=== PATIENT | male | born 1940 | race Two or more races ===

== ENCOUNTER → 2021-10-01 | Outpatient (CLI) | payer OTHER ==
[2021-10-01 12:22] LABS: Basophils # (auto) 0 10 ^3/uL (0-0.2); Basophils % (auto) 0.6 % (0.0-2.0); Eosinophils # (auto) 0.1 10 ^3/uL (0-0.8); Eosinophils % (auto) 2.4 % (0.0-7.0); Hematocrit 36.8 % (41.0-53.0); Hemoglobin 12.5 g/dL (13.5-17.5); Lymphocytes # (auto) 1.8 10 ^3/uL (0.4-5.4); Lymphocytes % (auto) 40.2 % (10.0-50.0); Mean Corpuscular Hemoglobin 30.5 pg (28.0-32.0); Mean Corpuscular Hgb Conc. 33.9 g/dL (32.0-36.0); Monocytes # (auto) 0.4 10 ^3/uL (0-1.3); Monocytes % (auto) 9.2 % (0.0-12.0); Neutrophils # (auto) 2.2 10 ^3/uL (1.6-8.6); Neutrophils % (auto) 47.6 % (37.0-80.0); Nucleated Red Blood Cells % 0.1 %; Red Blood Cells 4.09 10^6/uL (4.5-5.90); Red Cell Distribution Width 13.9 % (11.8-14.3); White Blood Cell 4.6 10^3/uL (4.4-10.8)
[2021-10-01 12:33] LABS: INR 1.1 (0.9-1.15)
[2021-10-01 12:37] LABS: Urine Bacteria NONE SEEN /hpf (None Seen); Urine Blood Negative /uL (Negative); Urine WBC 3 /hpf (0 - 3)
[2021-10-01 13:13] LABS: Albumin 3.7 g/dL (3.4-5.0); Calcium 8.8 mg/dL (8.5-10.1); Magnesium 2.2 mg/dL (1.6-2.6); Potassium 4.2 mmol/L (3.5-5.1); Uric Acid 4.1 mg/dL (3.5-7.2)
[2021-10-01 13:18] LABS: Bilirubin, Total 0.5 mg/dL (0.2-1.0); Phosphorus 2.8 mg/dL (2.5-4.90); Total Protein 6.6 g/dL (6.4-8.2)
[2021-10-01 13:21] LABS: Free T4 (Free Thyroxine) 0.95 ng/dL (0.89-1.76)
[2021-10-01 13:22] LABS: Free T3 2.98 pg/mL (2.3-4.2); T3 Total 0.92 ng/mL (0.60-1.81)
[2021-10-01 14:08] LABS: % Iron Saturation 38.2 % (20-55)
== END | disposition home or self-care (01) ==
LOC: LAB 11:55
PROVIDERS: ATTEND Family Medicine
DX: E55.9 Vitamin D deficiency, unspecified (principal); R53.83 Other fatigue; E78.41 Elevated Lipoprotein(a); R94.6 Abnormal results of thyroid function studies; R79.9 Abnormal finding of blood chemistry, unspecified; D69.1 Qualitative platelet defects
CPT/HCPCS: 36415; 80053; 80061; 81001; 82306; 82607; 83036; 83540; 83550; 83735; 84100; 84403; 84439; 84443; 84480; 84481; 84550; 85025; 85610; 87086

== ENCOUNTER 2022-11-27 16:22 | Emergency (ER) | payer OTHER ==
[~2022-11-27] VITALS: Ht 185.4 cm; Wt 90.9 kg
[~2022-11-27 16:22] MED LIST: APIX5TAB PO; LISI-716 PO; METO25TA5 PO; TAMS0.4C36 PO
[2022-11-27] MEDS ORDERED: IOHEXOL 350 MG/ML 100ML IJ ONE (16:39)
[2022-11-27] MEDS ORDERED: TRANEXAMIC ACID 1,000 MG in SODIUM CHL 0.9% 100 ML IV ONE (16:45)
[2022-11-27] MEDS ORDERED: ETOMIDATE (2MG/ML) 20ML VIAL IV ONE (17:00)
[2022-11-27] MEDS ORDERED: SUCCINYLCHOLINE CHLORIDE 20 MG/ML 10ML VIAL IV ONE (17:00)
[2022-11-27 17:02] LABS: Basophils # (auto) 0 10 ^3/uL (0-0.2); Basophils % (auto) 0.4 % (0.0-2.0); Eosinophils # (auto) 0 10 ^3/uL (0-0.8); Eosinophils % (auto) 0.1 % (0.0-7.0); Hematocrit 33.5 % (41.0-53.0); Hemoglobin 11.6 g/dL (13.5-17.5); Lymphocytes # (auto) 1.4 10 ^3/uL (0.4-5.4); Lymphocytes % (auto) 13.5 % (10.0-50.0); Mean Corpuscular Hgb Conc. 34.6 g/dL (32.0-36.0); Mean Corpuscular Volume 89.7 fL (80.0-100.0); Monocytes # (auto) 1.3 10 ^3/uL (0-1.3); Monocytes % (auto) 11.7 % (0.0-12.0); Neutrophils % (auto) 74.3 % (37.0-80.0); Nucleated Red Blood Cells % 0.1 %; Red Blood Cells 3.74 10^6/uL (4.5-5.90); Red Cell Distribution Width 14.4 % (11.8-14.3); White Blood Cell 10.7 10^3/uL (4.4-10.8)
[2022-11-27] MEDS ORDERED: MIDAZOLAM DRIP 50 mg/50mL 50 ML IV ONE (17:03)
[2022-11-27] MEDS: MIDAZOLAM DRIP 50 mg/50mL 50 ML IV SCH ×3 (17:14→19:17)
[2022-11-27 17:15] VITALS: BP 171/92
[2022-11-27 17:16] LABS: Albumin 3.6 g/dL (3.4-5.0); Calcium 8.6 mg/dL (8.5-10.1); Potassium 3.8 mmol/L (3.5-5.1)
[2022-11-27 17:18] LABS: Acetaminophen < 2.0 ug/mL (10-30); Salicylate < 1.7 mg/dL (2.8-20.0)
[2022-11-27 17:19] LABS: Bilirubin, Total 1.3 mg/dL (0.2-1.0); INR 1.17 (0.9-1.15); Partial Thromboplastin Time 32.6 sec (24.6-33.4); Total Protein 6.5 g/dL (6.4-8.2)
[2022-11-27] MEDS ORDERED: PROPOFOL 100 ML IV ONE (17:21)
[2022-11-27 17:22] LABS: Blood Alcohol < 3.0 mg/dL (0-5); Lipase 47 U/L (73-393)
[2022-11-27 17:31] LABS: Urine Bacteria NONE SEEN /hpf (None Seen); Urine Blood Negative /uL (Negative); Urine Mucus FEW (None Seen); Urine Specific Gravity 1.022 (1.001-1.035); Urine WBC 2 /hpf (0 - 3)
[2022-11-27] MEDS ORDERED: NOREPINEPHRINE 8 MG/250ML KIT 250 ML IV ONE (17:44)
[2022-11-27 17:46] LABS: Amphetamine Screen, Urine POSITIVE (NEGATIVE); Barbiturate Scree,Urine NEGATIVE (NEGATIVE); Benzodiazephine Screen, Urine NEGATIVE (NEGATIVE); Cannabinoid Screen, Urine NEGATIVE (NEGATIVE); Cocaine Screen, Urine NEGATIVE (NEGATIVE); Opiate Scree,Urine NEGATIVE (NEGATIVE); Phencyclidine Screen, Urine NEGATIVE (NEGATIVE)
[2022-11-27] MEDS ORDERED: LORazepam MDV 2MG/ML 50 MG in SODIUM CHL 0.9% 25 ML IV SCH ×6 (18:00)
[2022-11-27] MEDS ORDERED: MIDAZOLAM DRIP 50 mg/50mL 50 ML IV SCH ×3 (18:00)
[2022-11-27] MEDS ORDERED: MORPHINE SULFATE 100 MG in D5W 5% 90 ML IV SCH ×6 (18:00)
[2022-11-27] MEDS ORDERED: fentaNYL Drip 2500mCg/250mlNS 250 ML IV SCH ×3 (18:00)
[2022-11-27] MEDS ORDERED: PROPOFOL 100 ML IV SCH ×3 (18:00)
[2022-11-27] MEDS ORDERED: NOREPINEPHRINE 8 MG/250ML KIT 250 ML IV SCH ×2 (18:00→18:15)
[2022-11-27] MEDS ORDERED: MANNITOL 20% SOLN 100 gm/500ml 500 ML IV ONE (18:15)
[2022-11-27 19:17] VITALS: BP 132/81
== END 2022-11-27 19:29 | disposition short-term general hospital (02) ==
LOC: EDBD 16:22 → ER 16:22
DX: S06.5X0A Traumatic subdural hemorrhage without loss of consciousness, initial encounter (principal); R41.82 Altered mental status, unspecified; R07.9 Chest pain, unspecified; X58.XXXA Exposure to other specified factors, initial encounter; Y93.89 Activity, other specified; Y92.89 Other specified places as the place of occurrence of the external cause; Y99.8 Other external cause status
CPT/HCPCS: 31500; 36415; 36600; 70450; 71045; 80053; 80307; 80320; 80329; 81001; 82805; 83605; 83690; 83735; 83880; 84484; 85025; 85379; 85610; 85730; 87040; 93005; 96365; 96366; 96367; 96368; 99291; J0330; J1953; J2250; J2704; J7060